=== PATIENT | female | born 1950 | race Caucasian/White ===

== ENCOUNTER → 2017-11-08 10:46 | Outpatient (CLI) | payer OTHER, SELFPAY ==
--- NOTE | 2017-11-08 10:48 | DI.MG.S_ITS ---
BILATERAL DIGITAL SCREENING MAMMOGRAM 3D/2D WITH CAD: 11/08/2017 CLINICAL: Routine screening. Comparison is made to exams dated: 08/04/2016 mammogram, 03/26/2015 mammogram, and 01/16/2012 mammogram - [facility]. The tissue of both breasts is predominantly fatty. Current study was also evaluated with a Computer Aided Detection (CAD) system. No significant masses, calcifications, or other findings are seen in either breast. There has been no significant interval change. IMPRESSION: NEGATIVE There is no mammographic evidence of malignancy. A 1 year screening mammogram is recommended. This exam was interpreted at Station ID: [id number]. NOTE: For mammograms, a report in lay terms will be sent to the patient. Approximately 15% of breast malignancies will not be visualized mammographically. In the management of a palpable breast mass, a negative mammogram must not discourage biopsy of a clinically suspicious lesion. Electronically Signed By: Lai whaley/marlee:11/09/2017 19:59:35 letter sent: Normal Exam ACR BI-RADS Category 1: Negative [id number]
== END ==
PROVIDERS: Family Provider Physician Assistant; PCP Physician Assistant; Visit Provider Physician Assistant
DX: Z12.31 Encounter for screening mammogram for malignant neoplasm of breast (principal)
CPT/HCPCS: 77063; 77067

== ENCOUNTER → 2019-04-15 11:35 | Outpatient (CLI) | payer OTHER, SELFPAY ==
--- NOTE | 2019-04-15 11:36 | DI.MG.S_ITS ---
BILATERAL DIGITAL SCREENING MAMMOGRAM 3D/2D WITH CAD: 04/15/2019 CLINICAL: Routine screening. Comparison is made to exams dated: 11/08/2017 mammogram, 08/04/2016 mammogram, 03/26/2015 mammogram, and 01/16/2012 mammogram - [facility]. There are scattered fibroglandular elements in both breasts. Current study was also evaluated with a Computer Aided Detection (CAD) system. There is a mole marker on both breasts. No significant masses, calcifications, or other findings are seen in either breast. There has been no significant interval change. IMPRESSION: NEGATIVE There is no mammographic evidence of malignancy. A 1 year screening mammogram is recommended. This exam was interpreted at Station ID: [id number]. NOTE: For mammograms, a report in lay terms will be sent to the patient. Approximately 15% of breast malignancies will not be visualized mammographically. In the management of a palpable breast mass, a negative mammogram must not discourage biopsy of a clinically suspicious lesion. Electronically Signed By: Negrito jacob/marlee:04/15/2019 17:52:12 letter sent: Normal Exam ACR BI-RADS Category 1: Negative [id number]
== END ==
PROVIDERS: PCP Physician Assistant; Visit Provider Physician Assistant
DX: Z12.31 Encounter for screening mammogram for malignant neoplasm of breast (principal)
CPT/HCPCS: 77063; 77067

== ENCOUNTER → 2019-09-22 09:51 | Outpatient (CLI) | payer OTHER, SELFPAY ==
--- NOTE | 2019-09-22 09:56 | DI.US.S_ITS ---
PROCEDURE: US SOFT TISSUE HEAD AND NECK INDICATIONS: LEFT SUBMANDIBULAR LUMP TECHNIQUE: Real-time scanning was performed of the neck region of interest, with image documentation. COMPARISON: None. FINDINGS: No mass or fluid collection seen within the soft tissues in the region of interest in the left submandibular region. There are several morphologically normal appearing in size lymph nodes present the largest measuring 6 mm IMPRESSION: No visible sonographic abnormality involving the soft tissues in the region of interest. Dictated by: Joby DELEON Interpreted: Juan Darling MD on 09/22/2019 at 11:06 Approved by: Juan Darling M.D. on 09/22/2019 at 11:11
== END ==
PROVIDERS: PCP Physician Assistant; Referring Provider Otolaryngology; Visit Provider Otolaryngology
DX: R22.1 Localized swelling, mass and lump, neck (principal)
CPT/HCPCS: 76536

== ENCOUNTER 2020-01-02 15:39 | Observation (INO) | payer OTHER, SELFPAY ==
[2020-01-02 15:42] VITALS: BP 174/78; PULSE 75; RESP 12; TEMP 36.2; O2SAT 95; BMI 39.4
--- NOTE | 2020-01-02 15:44 | DI.RAD.S_ITS ---
PROCEDURE: XR CHEST 1V INDICATIONS: chest pain TECHNIQUE: One view of the chest was acquired. COMPARISON: None. FINDINGS: Surgical changes and devices: None. Lungs and pleura: Lungs are clear. No pleural effusions or pneumothorax. Mediastinum: Mediastinal contours appear normal. Heart size is normal. Bones and chest wall: No suspicious bony lesions. Overlying soft tissues appear unremarkable. IMPRESSION: Normal for age, source of current chest pain symptoms is not seen. Dictated by: Juan Darling M.D. on 01/02/2020 at 16:56 Approved by: Juan Darling M.D. on 01/02/2020 at 16:56
[2020-01-02 16:08] LABS: Add Manual Diff / Slide Review NO; Basophils Absolute Auto 100 /uL (0-100); Basophils Percent Auto 1.4 % (0-2); Eosinophils Absolute Auto 200 /uL (0-450); Eosinophils Percent Auto 2.5 % (2-4); Hematocrit 41.8 % (36-46); Hemoglobin 13.9 g/dL (12.0-16.0); Lymphocytes Absolute Auto 1900 /uL (1100-4500); Mean Corpuscular HGB Conc 33.3 % (30-36); Mean Corpuscular Hemoglobin 29.9 PG (26-34); Mean Corpuscular Volume 90.1 fL (80-100); Monocytes Absolute Auto 500 /uL (0-900); Monocytes Percent Auto 6.8 % (3-14); Neutrophils Absolute Auto 4000 /uL (1500-7000); Neutrophils Percent Auto 60.3 % (50-75); Platelet Count 267 X10^3/uL (150-400); Red Blood Cell Count 4.64 X10^6/uL (4.0-5.2); Red Cell Distribution Width 14.6 % (11.6-14.8); White Blood Cell Count 6.7 X10^3/uL (4.5-11.0)
[2020-01-02 16:14] LABS: Prothrombin Time 11.6 SECONDS (10.1-12.7)
[2020-01-02 16:16] LABS: PTT Partial Thromboplastin Tim 35 SECONDS (26.4-36.2)
[2020-01-02 16:20] LABS: Alanine Aminotransferase 24 IU/L (<35); Albumin 4.3 g/dL (3.5-5.0); Albumin Globulin Ratio 1.2 (1.0-2.8); Alkaline Phosphatase 106 U/L (38-126); Aspartate Aminotransferase 25 IU/L (14-36); BUN Creatinine Ratio 13.2 (6-22); Bilirubin Total 0.5 mg/dL (0.2-1.3); Blood Urea Nitrogen 12 mg/dL (7-17); Calcium 9.5 mg/dL (8.4-10.2); Carbon Dioxide 30 mmol/L (22-32); Chloride 103 mmol/L (98-107); Creatine Kinase 61 U/L (30-135); Estimated Glomerular Filt Rate > 60.0 mL/min (>60); Globulin 3.5 g/dL (1.7-4.1); Glucose 95 mg/dL (80-110); HEMOLYSIS < 15 (0-50); Lipase 52 U/L (23-300); Potassium 3.9 mmol/L (3.4-5.1); Sodium 141 mmol/L (137-145); Total Protein 7.8 g/dL (6.3-8.2)
--- NOTE | 2020-01-02 16:20 | ED.CHESTPAIN ---
HPI - Chest Pain General Chief Complaint: Chest Pain Stated Complaint: BACK PAIN AND CHEST PAIN Time Seen by Provider: 01/02/20 16:04 Source: patient Mode of arrival: Ambulatory Limitations: no limitations History of Present Illness HPI narrative: Patient is a 69-year-old female who presents with chest pain and pain between her scapulas. She said while driving to work this morning she had some pain between her scapulas in her thoracic area a did sometimes hurt to move and to push down on the arm rest and stand up. However this afternoon she started noticing some chest discomfort which she describes as someone pushing on her chest and pressure like. It is nonradiating. She denies any provocation or palliation. she denies any shortness of breath no shortness of breath with exertion no diaphoresis nausea vomiting no productive cough or fever. She does have a family history mom of [place] in her 30s. MD complaint: chest pain Duration: constant Quality: heaviness Pain radiation: none Relieving factors: nothing Exacerbating factors: nothing Related Data Previous Rx's Medication Instructions Recorded pneumoc 13-cristóbal conj-dip cr(PF) 0.5 0.5 ml IM X1 #1 ea 02/04/19 mL IM syringe varicella-zoster [id number] (PF) 50 0.5 ml IM ONCE #1 each 02/04/19 mcg/0.5 mL IM susp, kit ropinirole 0.5 mg tablet 0.5 mg PO BEDTIME #90 tab 07/04/19 ropinirole 2 mg tablet 2 mg PO BEDTIME #90 tab 07/04/19 levothyroxine 125 mcg tablet 125 mcg PO DAILY #90 tab 10/22/19 Allergies Allergy/AdvReac Type Severity Reaction Status Date / Time metronidazole AdvReac Nausea, Verified 04/21/19 13:59 chills Review of Systems Review of Systems Narrative: GENERAL: Denies chills, fatigue, malaise, fever, sweats, travel HEENT: Denies sinus pain, ear pain, sore throat, difficulty swallowing, neck pain RESPIRATORY: Denies dyspnea, cough, wheezing, hemoptysis, sputum. CARDIOVASCULAR: See HPI GASTROINTESTINAL: Denies nausea, vomiting, abdominal pain, diarrhea, constipation, melena. : Denies dysuria, frequency, incontinence, hematuria, urinary retention, flank pain. MUSCULOSKELETAL: Denies weakness, joint pain, or bony pain SKIN: No rash, no erythema, no pruritus NEUROLOGIC: Denies weakness, dizziness, headache, numbness, change in speech, confusion PSYCHIATRIC: No concerning psychosocial issues. 12 point review of systems is negative except for those stated above and HPI Patient History Medical History Acquired hypothyroidism (Chronic) Chickenpox (Resolved Unknown) Dyslipidemia (Chronic ~2014) Exertional dyspnea (Chronic ~2014) History of petit-mal seizures (Resolved 1954) Hypothyroidism (Chronic 2006) Measles (Resolved Unknown) Mixed hyperlipidemia (Chronic 02/08/15) Tubular adenoma of colon (Resolved 07/12/16) Surgical History Status post delivery Status post delivery Status post delivery Family History Father Heart disease Smoker Alcoholism Mother Heart disease Smoker Grandfather No problems noted. Grandmother Stroke Grandfather No problems noted. Social History Smoking Status: Never smoker second hand exposure: No alcohol intake: current ([employer] once or twice a year.) substance use type: does not use Smoking Status: Never smoker Substance Use Type: does not use Exam Initial Vital Signs Initial Vital Signs: Vital Signs Temperature 97.2 F L 01/02/20 15:42 Pulse Rate 75 01/02/20 15:42 Respiratory Rate 12 01/02/20 15:42 Blood Pressure 174/78 H 01/02/20 15:42 Pulse Oximetry 95 01/02/20 15:42 GENERAL: Well-appearing, well-nourished and in no acute distress. HEENT: Head atraumatic,EOMI, pupils reactive, face symmetric, moist mucous membranes CARDIOVASCULAR: Regular rate and rhythm without murmurs, rubs or gallops. RESPIRATORY: Breath sounds equal bilaterally, no wheezes rales or rhonchi. ABDOMEN: Soft, nontender. Normoactive bowel sounds all 4 quadrants. No guarding or rebound. EXTREMITIES: Normal range of motion, no clubbing or edema. Neurovascularly intact NEUROLOGICAL: Alert and oriented x4.Normal gait and speech. SKIN: Warm, dry, no laceration, no petechiae, no rashes or lesions. Course Orders Ordered: ED Orders 01/02/20 15:44 XR chest 1V Stat 01/02/20 15:46 EKG-12 Lead Stat 01/02/20 16:00 Complete Blood Count AUTO DIFF Stat Comprehensive Metabolic Panel Stat Lipase Stat Partial Thromboplastin Time Stat Prothrombin Time INR Stat Troponin & CK Cardiac Panel Stat 01/02/20 16:27 CT angio chest abdomen pelvis Stat 01/02/20 16:48 EKG-12 Lead Routine 01/02/20 18:22 COVID19 -ED/INPAT/OR/L&D Stat 01/02/20 18:34 Thyroid Stimulating Hormone Stat Discontinued Medications Aspirin (Aspirin Chew) 324 mg PO NOW ONE Stop: 01/02/20 16:29 Last Admin: 01/02/20 16:33 Dose: 324 mg Documented by: VAN Nitroglycerin (Nitrostat) 0.4 mg SL [id number] PRN PRN Reason: Chest Pain Last Admin: 01/02/20 17:32 Dose: 0.4 mg Documented by: Admin: 01/02/20 16:57 Dose: 0.4 mg Documented by: Admin: 01/02/20 16:35 Dose: 0.4 mg Documented by: VAN Vital Signs Vital signs: Vital Signs - 8 hr 01/02/20 15:42 Temperature 97.2 F L Pulse Rate 75 Respiratory Rate 12 Blood Pressure 174/78 H Pulse Oximetry 95 MDM - Chest Pain Lab Data Attestation: I reviewed the patient's lab results. Result diagrams: 01/02/20 16:00 01/02/20 16:00 Labs: Lab Results 01/02/20 01/02/20 01/02/20 Range/Units 16:00 16:00 16:00 WBC 6.7 (4.5-11.0) X10^3/uL RBC 4.64 (4.0-5.2) X10^6/uL Hgb 13.9 (12.0-16.0) g/dL Hct 41.8 (36-46) % MCV 90.1 (80-100) fL MCH 29.9 (26-34) PG MCHC 33.3 (30-36) % RDW 14.6 (11.6-14.8) % Plt Count 267 (150-400) X10^3/uL Neut % (Auto) 60.3 (50-75) % Lymph % (Auto) 29.0 (25-40) % [place] % (Auto) 6.8 (3-14) % Eos % (Auto) 2.5 (2-4) % Baso % (Auto) 1.4 (0-2) % Neut # (Auto) 4000 (2985-6769) /uL Lymph # (Auto) 1900 (7675-3417) /uL [place] # (Auto) 500 (0-900) /uL Eos # (Auto) 200 (0-450) /uL Baso # (Auto) 100 (0-100) /uL PT 11.6 (10.1-12.7) SECONDS INR 1.0 (0.9-1.3) APTT 35 (26.4-36.2) SECONDS Sodium 141 (137-145) mmol/L Potassium 3.9 (3.4-5.1) mmol/L Chloride 103 (98-107) mmol/L Carbon Dioxide 30 (22-32) mmol/L BUN 12 (7-17) mg/dL Creatinine 0.91 (0.52-1.04) mg/dL Estimated GFR > 60.0 (>60) mL/min BUN/Creatinine Ratio 13.2 (6-22) Glucose 95 (80-110) mg/dL Calcium 9.5 (8.4-10.2) mg/dL Total Bilirubin 0.5 (0.2-1.3) mg/dL AST 25 (14-36) IU/L ALT 24 (<35) IU/L Alkaline Phosphatase 106 (38-126) U/L Total Creatine Kinase 61 (30-135) U/L CK-MB (CK-2) TNP CK-MB (CK-2) Rel Index TNP Troponin I < 0.012 (0.01-0.034) ng/mL Total Protein 7.8 (6.3-8.2) g/dL Albumin 4.3 (3.5-5.0) g/dL Globulin 3.5 (1.7-4.1) g/dL Albumin/Globulin Ratio 1.2 (1.0-2.8) Lipase 52 (23-300) U/L COVID-19 PCR (Negative) 01/02/20 Range/Units 18:22 WBC (4.5-11.0) X10^3/uL RBC (4.0-5.2) X10^6/uL Hgb (12.0-16.0) g/dL Hct (36-46) % MCV (80-100) fL MCH (26-34) PG MCHC (30-36) % RDW (11.6-14.8) % Plt Count (150-400) X10^3/uL Neut % (Auto) (50-75) % Lymph % (Auto) (25-40) % [place] % (Auto) (3-14) % Eos % (Auto) (2-4) % Baso % (Auto) (0-2) % Neut # (Auto) (3470-8286) /uL Lymph # (Auto) (5024-3908) /uL [place] # (Auto) (0-900) /uL Eos # (Auto) (0-450) /uL Baso # (Auto) (0-100) /uL PT (10.1-12.7) SECONDS INR (0.9-1.3) APTT (26.4-36.2) SECONDS Sodium (137-145) mmol/L Potassium (3.4-5.1) mmol/L Chloride (98-107) mmol/L Carbon Dioxide (22-32) mmol/L BUN (7-17) mg/dL Creatinine (0.52-1.04) mg/dL Estimated GFR (>60) mL/min BUN/Creatinine Ratio (6-22) Glucose (80-110) mg/dL Calcium (8.4-10.2) mg/dL Total Bilirubin (0.2-1.3) mg/dL AST (14-36) IU/L ALT (<35) IU/L Alkaline Phosphatase (38-126) U/L Total Creatine Kinase (30-135) U/L CK-MB (CK-2) CK-MB (CK-2) Rel Index Troponin I (0.01-0.034) ng/mL Total Protein (6.3-8.2) g/dL Albumin (3.5-5.0) g/dL Globulin (1.7-4.1) g/dL Albumin/Globulin Ratio (1.0-2.8) Lipase (23-300) U/L COVID-19 PCR Negative (Negative) Imaging Data Chest x-ray: Radiologist's Impression: PROCEDURE: XR CHEST 1V INDICATIONS: chest pain TECHNIQUE: One view of the chest was acquired. COMPARISON: None. FINDINGS: Surgical changes and devices: None. Lungs and pleura: Lungs are clear. No pleural effusions or pneumothorax. Mediastinum: Mediastinal contours appear normal. Heart size is normal. Bones and chest wall: No suspicious bony lesions. Overlying soft tissues appear unremarkable. IMPRESSION: Normal for age, source of current chest pain symptoms is not seen. Dictated by: Juan Darling M.D. on 01/02/2020 at 16:56 Approved by: Juan Darling M.D. on 01/02/2020 at 16:56 CTA chest: Radiologist's Impression: PROCEDURE: CT ANGIO CHEST ABDOMEN PELVIS INDICATIONS: chest pain scapula pain TECHNIQUE: Precontrast 5 mm thick sections acquired from the lung apices to the iliac crests. After the administration of intravenous contrast, 2.5 mm thick sections again acquired from the lung apices to the iliac crests. Maximum intensity projection (MIP) oblique sagittal and coronal reformats were then acquired. For radiation dose reduction, the following was used: automated exposure control. COMPARISON: None. FINDINGS: Image quality: Excellent. VASCULAR FINDINGS: Mild coronary artery atherosclerotic calcifications are present. No acute aortic dissection, ulceration, or intramural hematoma. The origins of the major head and neck vessels are patent. Minimal atherosclerotic calcifications are seen in the thoracic and abdominal aorta. The aorta is normal in caliber throughout. The origins of the celiac trunk, SMA, renal arteries, and ANMOL are patent. The common iliac arteries are normal in size. The right and left internal and external iliac arteries are normal in size. The included portions of the common, superficial, and deep femoral arteries are patent. CHEST: Lungs and pleura: No acute airspace opacities. No pleural effusions or pneumothorax. Central and peripheral airways are patent and normal in caliber. Mediastinum: Heart size is normal. No pericardial effusion. No mediastinal or hilar adenopathy by size criteria. Central pulmonary arteries are normal in size. Esophagus is normal in caliber. No hiatal hernias. Bones and chest wall: No axillary adenopathy by size criteria. A peripherally calcified nodule is seen in the right thyroid. Additional partially calcified nodule seen in the left thyroid. Thyroid ultrasound may be obtained on a nonemergent basis for further evaluation. No suspicious bony lesions. No vertebral body compression fractures. ABDOMEN: Vasculature: Celiac trunk and mesenteric arteries are patent. Renal arteries are also patent. Solid organs: Liver is normal in size and enhancement. Gallbladder appears normal.. Biliary system is non dilated. Pancreas enhances normally. Spleen is normal in size and enhancement. No adrenal nodules. Both kidneys are normal in size and enhancement, without hydronephrosis. Peritoneum and bowel: No free fluid or air. Numerous diverticula are seen in the colon without signs of acute diverticulitis. Normal appendix. Nodes and vessels: No retroperitoneal or mesenteric adenopathy by size criteria. Inferior vena cava is normal in morphology. Miscellaneous: No ventral hernias. PELVIS: Genitourinary: Bladder wall thickness is normal. The uterus appears normal. No abnormal adnexal mass is seen. Miscellaneous: No inguinal hernias or adenopathy. No ventral hernias. Bones: No suspicious bony lesions. No vertebral body compression fractures. Mild degenerative changes are seen in the spine. No acute scapular fracture is seen. IMPRESSION: 1. No acute aortic dissection. Minimal atherosclerotic calcifications are seen in the included vasculature without hemodynamically significant stenosis. 2. Colonic diverticulosis without signs of acute diverticulitis. 3. Multiple partially calcified thyroid nodules are present. Thyroid ultrasound may be obtained on an outpatient basis for further evaluation. Dictated by: Nathen Carmichael M.D. on 01/02/2020 at 17:30 ECG Data Attestation: I personally reviewed and interpreted this ECG as follows: Prior ECG tracings: not available for review Interpretation: Normal sinus rhythm rate 60-158 QRS [address] changes EKG 2. Sinus rhythm rate 60 p.r. interval [address] changes similar to previous EKG MDM Narrative Medical decision making narrative: Patient received 3 nitroglycerines which finally resolved her chest pain. CT scan is negative for dissection. She does have risk factor of family history. Back pain does sound slightly musculoskeletal, however she is having radiation to chest. [address] Acosta, at this time recommend patient stay [facility] and have rule out with outpatient stress test early next. 1836-Dr. gross accepts patient for chest pain Discharge Plan Departure Patient Disposition: Admitted as Observation Clinical Impression: Chest pain Qualifiers: Chest pain type: unspecified Qualified Code(s): R07.9 - Chest pain, unspecified Admit Date/Time: 01/02/20 18:37 Admit Provider: Veronica Galarza
--- NOTE | 2020-01-02 16:27 | DI.CT.S_ITS ---
PROCEDURE: CT ANGIO CHEST ABDOMEN PELVIS INDICATIONS: chest pain scapula pain TECHNIQUE: Precontrast 5 mm thick sections acquired from the lung apices to the iliac crests. After the administration of intravenous contrast, 2.5 mm thick sections again acquired from the lung apices to the iliac crests. Maximum intensity projection (MIP) oblique sagittal and coronal reformats were then acquired. For radiation dose reduction, the following was used: automated exposure control. COMPARISON: None. FINDINGS: Image quality: Excellent. VASCULAR FINDINGS: Mild coronary artery atherosclerotic calcifications are present. No acute aortic dissection, ulceration, or intramural hematoma. The origins of the major head and neck vessels are patent. Minimal atherosclerotic calcifications are seen in the thoracic and abdominal aorta. The aorta is normal in caliber throughout. The origins of the celiac trunk, SMA, renal arteries, and ANMOL are patent. The common iliac arteries are normal in size. The right and left internal and external iliac arteries are normal in size. The included portions of the common, superficial, and deep femoral arteries are patent. CHEST: Lungs and pleura: No acute airspace opacities. No pleural effusions or pneumothorax. Central and peripheral airways are patent and normal in caliber. Mediastinum: Heart size is normal. No pericardial effusion. No mediastinal or hilar adenopathy by size criteria. Central pulmonary arteries are normal in size. Esophagus is normal in caliber. No hiatal hernias. Bones and chest wall: No axillary adenopathy by size criteria. A peripherally calcified nodule is seen in the right thyroid. Additional partially calcified nodule seen in the left thyroid. Thyroid ultrasound may be obtained on a nonemergent basis for further evaluation. No suspicious bony lesions. No vertebral body compression fractures. ABDOMEN: Vasculature: Celiac trunk and mesenteric arteries are patent. Renal arteries are also patent. Solid organs: Liver is normal in size and enhancement. Gallbladder appears normal.. Biliary system is non dilated. Pancreas enhances normally. Spleen is normal in size and enhancement. No adrenal nodules. Both kidneys are normal in size and enhancement, without hydronephrosis. Peritoneum and bowel: No free fluid or air. Numerous diverticula are seen in the colon without signs of acute diverticulitis. Normal appendix. Nodes and vessels: No retroperitoneal or mesenteric adenopathy by size criteria. Inferior vena cava is normal in morphology. Miscellaneous: No ventral hernias. PELVIS: Genitourinary: Bladder wall thickness is normal. The uterus appears normal. No abnormal adnexal mass is seen. Miscellaneous: No inguinal hernias or adenopathy. No ventral hernias. Bones: No suspicious bony lesions. No vertebral body compression fractures. Mild degenerative changes are seen in the spine. No acute scapular fracture is seen. IMPRESSION: 1. No acute aortic dissection. Minimal atherosclerotic calcifications are seen in the included vasculature without hemodynamically significant stenosis. 2. Colonic diverticulosis without signs of acute diverticulitis. 3. Multiple partially calcified thyroid nodules are present. Thyroid ultrasound may be obtained on an outpatient basis for further evaluation. Dictated by: Nathen Carmichael M.D. on 01/02/2020 at 17:30 Approved by: Nathen Carmichael M.D. on 01/02/2020 at 17:40
[2020-01-02 16:32] LABS: Troponin I < 0.012 ng/mL (0.01-0.034)
[2020-01-02] MEDS: ASPIRIN 81 MG CHEW TAB 324 MG PO (16:33)
[2020-01-02] MEDS: NITROGLYCERIN 0.4 MG SL TAB SL ×3 (16:35→17:32)
--- NOTE | 2020-01-02 16:50 | PC.NURSE ---
rpt ekg performed
[2020-01-02 17:30] VITALS: BP 145/62; PULSE 61; RESP 18; O2SAT 99
[2020-01-02 18:42] LABS: COVID19 -Nasal RAPID Negative (Negative)
[2020-01-02 19:15] VITALS: BP 166/44; PULSE 61; RESP 18; O2SAT 99
[2020-01-02 19:20] VITALS: BP 140/73; PULSE 62; RESP 18; TEMP 36.1; O2SAT 99
--- NOTE | 2020-01-02 19:36 | PC.ADMIT ---
[address] [facility] Admission Note: The patient,Demetria Ding,69 y/o, was given written information regarding hospital policies, unit procedures and contact persons. Patient's smoking status: Never smoker. Vital Signs - 8 hr 01/02/20 15:42 01/02/20 19:15 Temperature 97.2 F L Pulse Rate 75 61 Respiratory Rate 12 18 Blood Pressure 174/78 H 166/44 H Pulse Oximetry 95 99 Patient up from ED via stretcher. Patient was able to ambulate to AC bed on own and gait steady. Patient denies SOB or chest pain at this time. Tele placed shortly after arrival. Patient A&O, calm and cooperative.
[2020-01-02 19:42] LABS: Thyroid Stimulating Hormone 2.87 uIU/mL (0.47-4.68)
[2020-01-02 20:08] VITALS: BMI 39.4
[2020-01-02 21:14] VITALS: BP 140/73; PULSE 62; RESP 18; TEMP 36.1; O2SAT 99
[2020-01-02 21:27] LABS: Hemoglobin A1C% w Est Avg Glu 6.2 % (4.0-6.0)
[2020-01-02] MEDS: SODIUM CHLORIDE 0.9% FLUSH 10 ML IV (21:29)
[2020-01-02] MEDS: ACETAMINOPHEN 325 MG TABLET 650 MG PO (21:29)
[2020-01-03] VITALS (8 sets, daily range): BP systolic 116–144; BP diastolic 48–92; PULSE 69–70; RESP 12–18; TEMP 36.2–36.6; O2SAT 95–99
--- NOTE | 2020-01-03 | DI.ECHO.S_ITS ---
[facility] +---------+ : : [address] : : : : [id number] : : : : Phone: [phone]+ Echocardiogram Report + + :Name: JENAE KABA Study Date: 01/03/2020 Height: 64 in : :[facility] Weight: 225 lb : : Gender: Female BSA: 2.1 m2 : :: 1950 Age: 69 yrs BP: 144/74 mmHg: :Reason For Study: CHEST PAIN : :Ordering Physician: : :HOSPITALISTYOVANI Performed By: Eri Cooper : :Referring: MALICK PAK : + + Interpretation Summary This is a technically difficult study enhanced with Definity echocontrast. Normal sinus rhythm. Normal LV size; mild concentric LVH; normal wall motion and LV systolic function. EF is 60-65%. Aortic valve leaflets are moderately thickened and calcified with mild associated aortic stenosis. No prior study available for comparison. Procedure: A two-dimensional transthoracic echocardiogram with color flow and Doppler was performed. The study quality was technically difficult. A contrast injection of Definity was performed to improve assessment of LV function. There is no prior echocardiogram noted for this patient. The patient was in sinus rhythm with heart rates between 66-71 bpm during the exam. Left Ventricle: The left ventricle is normal in size. There is mild concentric left ventricular hypertrophy. The ejection fraction is estimated to be 60-65%. Diastolic parameters suggest probable normal left ventricular diastolic function and normal filling pressures. Right Ventricle: The right ventricle is normal in size and function. Atria: Both atria are normal in size. There is no Doppler evidence for an interatrial shunt. Mitral Valve: The mitral valve is normal in structure and function. Aortic Valve: The aortic valve is not well visualized. There is mild aortic valve sclerosis. There is mild aortic stenosis. No aortic regurgitation is present. Tricuspid Valve: The tricuspid valve is normal. Pulmonary artery pressures cannot be estimated because of the lack of a measurable TR jet velocity but the IVC suggests a CVP of around 3 mmHg. There is trace tricuspid regurgitation. Pulmonic Valve: The pulmonic valve is not well seen, but is grossly normal. There is trace pulmonic regurgitation. Great Vessels: The aortic root is normal size. The dimensions of the ascending aorta are normal. The IVC is of normal diameter and collapses greater than 50% with a sniff. This suggests a low right atrial pressure of 3 mm Hg. Pericardium/ Pleura There is no pericardial effusion. There is no pleural effusion. MMode/2D Measurements & Calculations LVIDd: 4.5 cm LVOT diam: 2.1 cm LVIDs: 3.1 cm Ao root diam: 3.1 cm FS: 32.1 % asc Aorta Diam: 3.1 cm EPSS: 0.74 cm Ao Arch Diam (Prox Trans): 3.2 cm IVSd: 1.2 cm LVPWd: 1.1 cm LV villalobos. diameter/BSA (cm/m^2): 2.2 LV sys. diameter/BSA (cm/m^2): 1.5 LA A2 area: 20.5 cm2 RA long axis: 4.2 cm LA A4 area: 14.4 cm2 RA area: 10.9 cm2 LA length (vol): 4.7 cm RA vol: 24.1 ml LA vol: 53.3 ml RA : 11.7 ml/m2 LA vol index: 25.9 ml/m2 IVC diam: 1.3 cm RVD1 (basal): 3.4 cm TAPSE: 1.8 cm Doppler Measurements & Calculations Ao V2 max: 209.2 cm/sec LVOT Max Ricky: 128.4 cm/sec Ao V2 mean: 138.3 cm/sec LV V1 max P.6 mmHg Ao max P.5 mmHg LV V1 VTI: 26.4 cm Ao mean P.0 mmHg SHAILA(I,D): 2.3 cm2 Ao V2 VTI: 40.8 cm SHAILA(V,D): 2.2 cm2 sev ratio: 0.65 SHAILA indexed to BSA (cm^2/m^2): 1.1 MV E max ricky: 75.0 cm/sec PA V2 max: 83.4 cm/sec MV A max ricky: 88.6 cm/sec PA V2 mean: 54.1 cm/sec MV E/A: 0.85 PA mean P.3 mmHg Med Peak E' Ricky: 6.6 cm/sec PA pr(Accel): 22.5 mmHg E/E' med: 11.3 Lat Peak E' Ricky: 9.3 cm/sec E/E' lat: 8.0 E/e' average: 9.7 MV dec time: 0.22 sec SV(LVOT): 94.8 ml Electronically signed by: Jazmin Farias M.D. on Reading Physician:01/03/2020 04:55 PM
[2020-01-03 00:02] LABS: Troponin I < 0.012 ng/mL (0.01-0.034)
--- NOTE | 2020-01-03 02:41 | P.HP_ITS ---
History of Present Illness History of Present Illness Date Patient Seen: 01/02/20 Time Patient Seen: 21:00 Chief complaint: BACK PAIN AND CHEST PAIN Narrative: Demetria Ding is a 69-year-old female with hypothyroidism and who was on her way to work and noticed that she developed pain in her upper back. It was achy sort of a feeling, she states that was like staying in bed too long. Later in the day she developed chest pain which felt more like an on going pressure. It did not seem to be related to the pain in her upper back. She denies any fevers sweats or chills or diaphoresis, shortness of breath, nausea or vomiting, dysuria, abdominal pain, diarrhea or constipation. She is independent in is able to ambulate without any issues. She was concerned because she has family history of her biological mother whose children she met told her that their m other at the age of 33 suddenly and the patient believed she of a sudden cardiac . Her biological father who she did now in his 60s and was a heavy smoker and coffee drinker. In the ED the head CT as well as a CT angio of the chest were both negative. Patient's temperature is 97.9?, blood pressure 116/48, heart rate of 69, respiratory rate of 12, oxygen saturation 99% on room air she weighs 102.5 kg with a BMI of 39.4. CBC, BMP and liver enzymes all were within normal limits, she does have a hemoglobin A1c of 6.2, TSH was normal, COVID-19 was negative. Patient History Medical History Acquired hypothyroidism (Chronic) Chickenpox (Resolved Unknown) Dyslipidemia (Chronic ~2014) Exertional dyspnea (Chronic ~2014) History of petit-mal seizures (Resolved 1954) Hypothyroidism (Chronic 2006) Measles (Resolved Unknown) Mixed hyperlipidemia (Chronic 02/08/15) Tubular adenoma of colon (Resolved 07/12/16) Surgical History Status post delivery Status post delivery Status post delivery Family & Social History Family History Father Heart disease Smoker Alcoholism Mother Heart disease Smoker Grandfather No problems noted. Grandmother Stroke Grandfather No problems noted. Social History: household members family Prior Living Arrangements House Safety & Behavioral: Feels Safe in Current Yes Environment Been Physically Hurt or No Threatened By a Person Suicidal Ideation Description None Suicide Plan Description No Plan Tobacco & Substance use: Smoking Status Never smoker alcohol intake current alcohol intake frequency holiday/special occasion Substance Use Type does not use Meds Home Medications and Allergies Home Medications Medication Instructions Recorded Confirmed Type levothyroxine 125 mcg tablet 125 mcg PO DAILY #90 tab 10/22/19 01/02/20 Rx Allergies Allergy/AdvReac Type Severity Reaction Status Date / Time metronidazole AdvReac Nausea, Verified 04/21/19 13:59 chills Review of Systems Review of Systems ROS: Yes All systems reviewed with the patient and are negative except as otherwise documented Exam Vital Signs (past 8 hours): - 01/02/20 19:15 01/02/20 19:20 01/02/20 21:14 Temperature 97 F L 97.0 F L Pulse Rate 61 62 62 Respiratory Rate 18 18 18 Blood Pressure 166/44 H 140/73 140/73 Pulse Oximetry 99 99 99 01/03/20 00:14 01/03/20 01:15 Temperature 97.9 F Pulse Rate 69 Respiratory Rate 12 Blood Pressure 116/48 L Pulse Oximetry 96 99 Oxygen Delivery Method Room Air Narrative Exam Narrative: Gen: Alert, oriented, obese 69 y.o. female, slightly anxious HEENT: normocephalic, atraumatic, conjunctiva clear, sclera non-icteric, oral mucosa pink and moist Neck: supple, full ROM, no JVD, trachea is midline Resp: Lungs CTA, non-labored breathing CV: RRR, no murmur or rubs Abd: soft, non-tender, normoactive BTs Skin: no lesions or rashes, dry and intact Neuro: Alert and oriented X 4 w/no focal deficits. Speech clear and coherent. Extremities: moves all 4 extremities, is ambulatory, negative Flex?s sign Psyche: normal mood and affect. Objective Labs Result Diagrams: 01/02/20 16:00 01/02/20 16:00 Labs: Laboratory Results - last 24 hr 01/02/20 01/02/20 01/02/20 16:00 16:00 16:00 WBC 6.7 RBC 4.64 Hgb 13.9 Hct 41.8 MCV 90.1 MCH 29.9 MCHC 33.3 RDW 14.6 Plt Count 267 Neut % (Auto) 60.3 Lymph % (Auto) 29.0 [place] % (Auto) 6.8 Eos % (Auto) 2.5 Baso % (Auto) 1.4 Neut # (Auto) 4000 Lymph # (Auto) 1900 [place] # (Auto) 500 Eos # (Auto) 200 Baso # (Auto) 100 PT 11.6 INR 1.0 APTT 35 Sodium 141 Potassium 3.9 Chloride 103 Carbon Dioxide 30 BUN 12 Creatinine 0.91 Estimated GFR > 60.0 BUN/Creatinine Ratio 13.2 Glucose 95 Hemoglobin A1c Calcium 9.5 Total Bilirubin 0.5 AST 25 ALT 24 Alkaline Phosphatase 106 Total Creatine Kinase 61 CK-MB (CK-2) TNP CK-MB (CK-2) Rel Index TNP Troponin I < 0.012 Total Protein 7.8 Albumin 4.3 Globulin 3.5 Albumin/Globulin Ratio 1.2 Lipase 52 TSH COVID-19 PCR 01/02/20 01/02/20 01/02/20 16:00 16:00 18:22 WBC RBC Hgb Hct MCV MCH MCHC RDW Plt Count Neut % (Auto) Lymph % (Auto) [place] % (Auto) Eos % (Auto) Baso % (Auto) Neut # (Auto) Lymph # (Auto) [place] # (Auto) Eos # (Auto) Baso # (Auto) PT INR APTT Sodium Potassium Chloride Carbon Dioxide BUN Creatinine Estimated GFR BUN/Creatinine Ratio Glucose Hemoglobin A1c 6.2 H Calcium Total Bilirubin AST ALT Alkaline Phosphatase Total Creatine Kinase CK-MB (CK-2) CK-MB (CK-2) Rel Index Troponin I Total Protein Albumin Globulin Albumin/Globulin Ratio Lipase TSH 2.87 COVID-19 PCR Negative 01/02/20 23:30 WBC RBC Hgb Hct MCV MCH MCHC RDW Plt Count Neut % (Auto) Lymph % (Auto) [place] % (Auto) Eos % (Auto) Baso % (Auto) Neut # (Auto) Lymph # (Auto) [place] # (Auto) Eos # (Auto) Baso # (Auto) PT INR APTT Sodium Potassium Chloride Carbon Dioxide BUN Creatinine Estimated GFR BUN/Creatinine Ratio Glucose Hemoglobin A1c Calcium Total Bilirubin AST ALT Alkaline Phosphatase Total Creatine Kinase CK-MB (CK-2) CK-MB (CK-2) Rel Index Troponin I < 0.012 Total Protein Albumin Globulin Albumin/Globulin Ratio Lipase TSH COVID-19 PCR Assessment & Plan Assessment & Plan narrative: Demetria Ding is placed into observation for further evaluation of her chest pain. She is also now newly diagnosed with diabetes type 2. Chest pain, acute, present on admission -troponin is negative x2 1 more is pending. -she is initiated on aspirin 81 mg once daily -she is initiated on lisinopril 10 mg p.o. daily -complete echo in the morning -she will need a follow-up referral for outpatient cardiac stress testing Diabetes type 2, new, present on admission with a hemoglobin A1c of 6.2 -she will be put on a low-dose insulin correctional scale -she should be discharged with diabetic Education and probable metformin low- dose with follow-up in 3 months Risk stratification -she will be started on atorvastatin 40 mg p.o. at bedtime -lipid panel is pending Hypothyroidism, chronic Continue home dose of levothyroxine 125 mcg p.o. daily VTE prophylaxis: Wells risk score: 0 Enoxaparin 40 mg subQ daily Consults: none Patient is observation status as her stay is not likely to exceed 2 midnights. FEN: NS at 100 ml/hour, carb control diet, BMP and magnesium in the am. Dispo: Probable discharge to home Code Status: full code as discussed with patient Scores Wells' Criteria for PE Clinical signs and symptoms of DVT: No PE is #1 Dx or equally likely: No Heart rate > 100: No Immobilization at least 3 days or surg in previous 4 weeks: No History of PE or DVT: No Hemoptysis: No Malignancy w/Treatment within 6 months or palliative: No Wells' PE Score total: 0 Quality VTE Deep Vein Thrombosis/Pulmonary Embolism Present on Admission: No
[2020-01-03] MEDS: ACETAMINOPHEN 325 MG TABLET 650 MG PO (04:04)
[2020-01-03 05:42] LABS: Add Manual Diff / Slide Review NO; Basophils Absolute Auto 100 /uL (0-100); Basophils Percent Auto 1.4 % (0-2); Eosinophils Absolute Auto 200 /uL (0-450); Eosinophils Percent Auto 3.2 % (2-4); Hematocrit 37.2 % (36-46); Hemoglobin 12.4 g/dL (12.0-16.0); Lymphocytes Absolute Auto 1700 /uL (1100-4500); Lymphocytes Percent Auto 27.5 % (25-40); Mean Corpuscular HGB Conc 33.2 % (30-36); Mean Corpuscular Hemoglobin 29.6 PG (26-34); Mean Corpuscular Volume 89.3 fL (80-100); Monocytes Absolute Auto 600 /uL (0-900); Monocytes Percent Auto 9.8 % (3-14); Neutrophils Absolute Auto 3500 /uL (1500-7000); Neutrophils Percent Auto 58.1 % (50-75); Platelet Count 232 X10^3/uL (150-400); Red Blood Cell Count 4.17 X10^6/uL (4.0-5.2); Red Cell Distribution Width 14.8 % (11.6-14.8); White Blood Cell Count 6.1 X10^3/uL (4.5-11.0)
[2020-01-03 05:56] LABS: BUN Creatinine Ratio 15.8 (6-22); Blood Urea Nitrogen 15 mg/dL (7-17); Calcium 8.9 mg/dL (8.4-10.2); Carbon Dioxide 27 mmol/L (22-32); Chloride 106 mmol/L (98-107); Cholesterol 207 mg/dL (140-199); Estimated Glomerular Filt Rate 58.5 mL/min (>60); Glucose 103 mg/dL (80-110); HDL Cholesterol 46 mg/dL (40-60); HEMOLYSIS < 15 (0-50); LDL Cholesterol Calculated 134 mg/dL (<100); Sodium 138 mmol/L (137-145); Triglycerides 133 mg/dL (35-150)
[2020-01-03] MEDS: lisinopriL 10 MG TABLET PO ×2 (08:05→12:26)
[2020-01-03] MEDS: ASPIRIN EC 81 MG TABLET PO (08:05)
[2020-01-03] MEDS: SODIUM CHLORIDE 0.9% FLUSH 10 ML IV (08:05)
[2020-01-03] MEDS: LEVOTHYROXINE 125 MCG TABLET PO (08:26)
[2020-01-03 08:33] LABS: Creatine Kinase 44 U/L (30-135)
[2020-01-03 08:46] LABS: Troponin I < 0.012 ng/mL (0.01-0.034)
[2020-01-03] MEDS: KETOROLAC 30 MG/ML VIAL IV (11:00)
--- NOTE | 2020-01-03 12:19 | CM.DANOTE ---
Discharge Planning/Care Management DCP: assessment: case received, EMRf reviewed and met briefly with pt during Team Bedside Rounds. Introduced self and role. Pt is a 69 year old female who admitted to care of hospitalist team. PCP: Pt confirms: Sarah Saldivar/[facility]. Payer: [employer] ER physician did confer with cardiology: recommendation for pt to admit to hospital and workup including ECHO an stress test. Pt reported in Rounds that she still was having some chest pain but to a lesser degree. Dr. Galarza has placed a d/c order for home which she plans to finalize if test results are as she anticipates. Pt reports she did drive herself here from her home in [place]. If she is not ok'd to drive herself home she says she will reach out to her Emergency contact/friend: Sonja Webster (her contact info is on pt's face sheet.) P: at this point: home when stable for same.j Dr. Galarza told pt she would be back later to see her once test results are in place. CM Discharge Assessment Start: 01/03/20 12:17 Freq: Status: Active Protocol: Document 01/03/20 12:17 ITV (Rec: 01/03/20 12:19 ITV [id number]) Discharge Planning Assessment Advance Directives? Yes History Provided By Patient,Medical Record Prior Living Arrangements House Type of transporation used prior to Drives own vehicle admit Independent with ADL's Yes Is patient alert and oriented? Yes Review Status In Process
--- NOTE | 2020-01-03 16:46 | P.DS_ITS ---
History of Present Illness History of Present Illness Date Patient Seen: 01/02/20 Chief complaint: BACK PAIN AND CHEST PAIN Narrative: Written by Lia PANTOJA: Demetria Ding is a 69-year-old female with hypothyroidism and who was on her way to work and noticed that she developed pain in her upper back. It was achy sort of a feeling, she states that was like staying in bed too long. Later in the day she developed chest pain which felt more like an on going pressure. It did not seem to be related to the pain in her upper back. She denies any fevers sweats or chills or diaphoresis, shortness of breath, nausea or vomiting, dysuria, abdominal pain, diarrhea or constipation. She is independent in is able to ambulate without any issues. She was concerned because she has family history of her biological mother whose children she met told her that their mother at the age of 33 suddenly and the patient believed she of a sudden cardiac . Her biological father who she did now in his 60s and was a heavy smoker and coffee drinker. In the ED the head CT as well as a CT angio of the chest were both negative. Patient's temperature is 97.9?, blood pressure 116/48, heart rate of 69, respiratory rate of 12, oxygen saturation 99% on room air she weighs 102.5 kg with a BMI of 39.4. CBC, BMP and liver enzymes all were within normal limits, she does have a hemoglobin A1c of 6.2, TSH was normal, COVID-19 was negative. Discharge Providers Provider Date of admission: 01/02/20 18:37 Discharge Date: 01/03/20 Primary care physician: Sarah Saldivar PA-C Consults: 01/03/20 02:52 Consult to Dietitian, Adult Urgent Comment: Reason For Exam: diabetic teaching Discharge provider: Veronica Galarza DO Summary Hospital Course Discharge Diagnosis: 1. Acute chest pain, present on admission. Resolved. 2. Newly diagnosed hypertension, chronic, present on admission. Stable. 3. Newly diagnosed hyperlipidemia, chronic, present on admission. Stable. 4. Newly diagnosed prediabetes, chronic, present on admission. Stable. 5. Hypothyroidism, chronic, present on admission. Stable. Hospital Course: Demetria Ding is a 69-year-old female with a past medical history significant for hypothyroidism and who presented to the ED with upper back pain that slowly progressed to chest pressure. 1. Acute chest pain, present on admission. Resolved. -Patient presented with upper back pain that slowly progressed to chest pressure. Patient received 2 doses SL nitroglycerin without change then resolved with 3rd dose. Patient has had intermittent and ongoing mild chest pressure. -Cardiac risk factors include: Hypertension, hyperlipidemia, prediabetes, and family history (mother in 30's of sudden presumed cardiac ). -EKG demonstrated sinus rhythm with LVH and without acute ischemic changes such as ST elevation or depression. Continued to monitor closely on telemetry. Patient remained in sinus rhythm throughout hospitalization without significant ectopy. -CTA chest, abdomnen and pelvis did not demonstrate acute aortic dissection with minimal atherosclerotic calcifications are seen in the included vasculature without hemodynamically significant stenosis. -Trended serial troponins x3 which were < 0.012. -Risk stratified with hemoglobin A1c which was slightly elevated at 6.2% indicative of prediabetes and and fasting lipid panel which demonstrated poor lipid control with: Total cholesterol 207, triglyceride 133, LDL 134 (goal <100) and HDL 46. -Echocardiogram demonstrated normal LV size; mild concentric LVH; normal wall motion and LV systolic function with EF is 60-65%, Aortic valve leaflets are moderately thickened and calcified with mild associated aortic stenosis. -Ordered nitroglycerin 0.4 mg sublingual every 5 minutes as needed for chest pain and morphine 2 mg every 5 minutes as needed for chest pain not relieved with nitroglycerin. Discharged home with prescription of nitroglycerin. -Started and continued aspirin 81 mg weekly and atorvastatin 40 mg daily at bedtime. -Recommended outpatient cardiac stress test in the next 1-2 weeks per PCP. 2. Newly diagnosed hypertension, chronic, present on admission. Stable. -Patient's blood pressure was persistently elevated with SBP 140-160s with evidence of LVH on EKG and echocardiogram. -Started and continued home lisinopril 20 mg daily. 3. Newly diagnosed hyperlipidemia, chronic, present on admission. Stable. -Fasting lipid panel demonstrated poor lipid control as above. -Started and continued atorvastatin 40 mg at bedtime. 4. Newly diagnosed prediabetes, chronic, present on admission. Stable. -Hemoglobin A1c 6.2%. -Continued [facility] blood glucose checks and low-dose insulin correctional scale. -Community Administrator consult not obtained due to scheduling. -Recommended lifestyle modification including diet and exercise. 5. Hypothyroidism, chronic, present on admission. Stable. -TSH normal at 2.87. -Continued home levothyroxine 125 mcg daily. Exam Vital Signs (past 8 hours): - 01/03/20 12:00 01/03/20 12:26 01/03/20 16:08 Temperature 97.1 F L 97.1 F L Pulse Rate 69 70 Respiratory Rate 15 18 Blood Pressure 144/87 H 144/87 H 129/72 Pulse Oximetry 96 96 Oxygen Delivery Method Room Air Oxygen Flow Rate 0 Narrative Exam Narrative: General: Older female sitting in bed and in no acute distress, well-developed, well-nourished, appropriately interactive HEENT: Normocephalic, atraumatic. External ears without defect. Pupils equal, round, and reactive to light. Anicteric sclerae, moist conjunctivae, and no lid lag. Oropharynx free of erythema and cobble stoning with moist mucosa. Neck: Supple with full range of motion. No jugular venous distension. No bruits. No lymphadenopathy or thyromegaly. Cardiovascular: Regular rate and rhythm without murmurs, rubs, or gallops appreciated. Pulmonary: Clear to auscultation bilaterally without crackles, wheezes, or rhonchi. Normal respiratory effort with no use of accessory muscles. Abdomen: Soft, bowel sounds present, nontender, nondistended. No hepatosplenomegaly or masses appreciated. Extremities: No clubbing, cyanosis, or edema. Skin: Normal temperature, turgor, and texture; no rash, ulcers, or subcutaneous nodules appreciated. Neurological: Cranial nerves grossly intact. Psychiatric: Normal mood and affect. Alert and oriented to person, place, and time. Objective Labs Result Diagrams: 01/03/20 05:07 01/03/20 05:07 Labs: Laboratory Results - last 24 hr 01/02/20 01/02/20 01/02/20 16:00 16:00 23:30 WBC RBC Hgb Hct MCV MCH MCHC RDW Plt Count Neut % (Auto) Lymph % (Auto) [place] % (Auto) Eos % (Auto) Baso % (Auto) Neut # (Auto) Lymph # (Auto) [place] # (Auto) Eos # (Auto) Baso # (Auto) Sodium Potassium Chloride Carbon Dioxide BUN Creatinine Estimated GFR BUN/Creatinine Ratio Glucose Hemoglobin A1c 6.2 H Calcium Magnesium Total Creatine Kinase CK-MB (CK-2) CK-MB (CK-2) Rel Index Troponin I < 0.012 Triglycerides Cholesterol LDL Cholesterol, Calc HDL Cholesterol TSH 2.87 01/03/20 01/03/20 01/03/20 05:07 05:07 05:07 WBC 6.1 RBC 4.17 Hgb 12.4 Hct 37.2 MCV 89.3 MCH 29.6 MCHC 33.2 RDW 14.8 Plt Count 232 Neut % (Auto) 58.1 Lymph % (Auto) 27.5 [place] % (Auto) 9.8 Eos % (Auto) 3.2 Baso % (Auto) 1.4 Neut # (Auto) 3500 Lymph # (Auto) 1700 [place] # (Auto) 600 Eos # (Auto) 200 Baso # (Auto) 100 Sodium 138 Potassium 4.0 Chloride 106 Carbon Dioxide 27 BUN 15 Creatinine 0.95 Estimated GFR 58.5 L BUN/Creatinine Ratio 15.8 Glucose 103 Hemoglobin A1c Calcium 8.9 Magnesium 2.0 Total Creatine Kinase 44 CK-MB (CK-2) TNP CK-MB (CK-2) Rel Index TNP Troponin I < 0.012 Triglycerides 133 Cholesterol 207 H LDL Cholesterol, Calc 134 H HDL Cholesterol 46 TSH Discharge Plan Discharge Plan Patient Disposition: Home Discharge comment: You are being discharged home. Your chest pain is likely musculoskeletal. You have no evidence of heart attack or impending heart attack. Your EKG and heart monitoring were normal. Your heart enzymes were normal. Your echocardiogram did not show any changes of your heart to suggest heart attack. Your cholesterol is highly elevated and we have started you on aspirin 81 mg daily and atorvastatin 40 mg daily at bedtime. Your blood pressure was elevated and you have been started on lisinopril 20 mg daily. Recommend continued monitoring of your blood pressure with correct blood pressure measurement technique to assure that your blood pressure is well controlled. You are prediabetic and recommend lifestyle modification as discussed including: Low-fat, low-carbohydrate diet and exercise as you are doing. You were provided a prescription for nitroglycerin to use if needed for chest pain. If your chest pain recurs please seek medical attention immediately. Recommend outpatient stress test. Please follow-up with your primary care physician, Rosalba Saldivar, in the next 1 week regarding your hospitalization and referral for stress test. Discharge orders & Medications Prescriptions: New atorvastatin [Lipitor] 20 mg Tablet 40 mg PO BEDTIME Qty: 30 RF: 0 lisinopril 20 mg Tablet 20 mg PO DAILY Qty: 30 RF: 0 aspirin 81 mg Tablet,Delayed Release (Dr/Ec) 81 mg PO DAILY Qty: 30 RF: 0 nitroglycerin [Nitrostat] 0.4 mg Tablet, Sublingual 0.4 mg sublingual [id number] PRN (Reason: Chest Pain) 10 Days RF: 0 Continued levothyroxine 125 mcg tablet 125 mcg PO DAILY Qty: 90 RF: 0 Follow up/Referrals: Sarah Saldivar PA-C [Primary Care Provider] - 1 Week Diet/Activity/Treatments Diet: Carb-consistent/Diabetic, Low-fat, Low-sodium and Low-cholesterol Visit Report/Discharge Packet Instructions: The Mediterranean Diet and Good Health, DI for Chest Pain, Atorvastatin, Nitroglycerin Sublingual, Aspirin, Lisinopril Visit Report Forms: Patient Portal/API, Stroke Signs & Symptoms Discharge Data Primary Care Provider: Sarah Saldivar Attending Provider: Veronica Galarza Admit Date/Time: 01/02/20 18:37 Discharges patient from system. Discharge Date/Time: 01/03/20 18:57 Quality VTE Deep Vein Thrombosis/Pulmonary Embolism Present on Admission: No
--- NOTE | 2020-01-03 18:58 | PC.NURSE ---
Pt discharge instructions given. HL D/C'd intact. Pt escorted to vehicle by staff. D/C in stable condition.
== END 2020-01-03 18:57 | disposition home or self-care (01) ==
LOC: ED 18:37 → AC 18:38
PROVIDERS: Nurse Practitioner Family; Admitting Provider Internal Medicine; Emergency Provider Emergency Medicine; PCP Physician Assistant; Referring Provider Emergency Medicine; Visit Provider Internal Medicine
DX: R07.9 Chest pain, unspecified (principal); M54.6 Pain in thoracic spine; E11.9 Type 2 diabetes mellitus without complications; E03.9 Hypothyroidism, unspecified; Z11.59 Encounter for screening for other viral diseases
CPT/HCPCS: 36415; 36592; 71045; 71275; 74174; 80048; 80053; 80061; 82550; 82962; 83036; 83690; 83735; 84443; 84484; 85025; 85610; 85730; 87635; 93005; 93010; 96374; 99284; G0378; C8929; J1885; Q9957; Q9967

== ENCOUNTER → 2021-02-10 09:31 | Outpatient (CLI) | payer SELFPAY ==
--- NOTE | 2021-02-10 | DI.RAD.S_ITS ---
PROCEDURE: XR DEXA AXIAL SKELETON INDICATIONS: Asymptomatic menopausal state COMPARISON: None. FINDINGS: This blank DEXA report has been sent in error by the PACS system. The correct and complete report will be forthcoming in 1-2 days. Thank you for your patience and understanding. Dictated by: Jorge Alberto Moreira M.D. on 02/11/2021 at 10:09 Approved by: Luana Haas MD, PhD on 03/01/2021 at 10:04
--- NOTE | 2021-02-10 | DI.MG.S_ITS ---
BILATERAL DIGITAL SCREENING MAMMOGRAM 3D/2D WITH CAD: 02/10/2021 CLINICAL: Routine screening. Comparison is made to exams dated: 04/15/2019 mammogram, 11/08/2017 mammogram, 08/04/2016 mammogram, and 03/26/2015 mammogram - [facility]. There are scattered fibroglandular elements in both breasts. Current study was also evaluated with a Computer Aided Detection (CAD) system. No significant masses, calcifications, or other findings are seen in either breast. There has been no significant interval change. IMPRESSION: NEGATIVE There is no mammographic evidence of malignancy. A 1 year screening mammogram is recommended. This exam was interpreted at Station ID: [id number]. NOTE: For mammograms, a report in lay terms will be sent to the patient. Approximately 15% of breast malignancies will not be visualized mammographically. In the management of a palpable breast mass, a negative mammogram must not discourage biopsy of a clinically suspicious lesion. Electronically Signed By: Shreyas quinones/marlee:02/10/2021 13:21:01 letter sent: Normal Exam ACR BI-RADS Category 1: Negative 3341F
== END ==
PROVIDERS: PCP Nurse Practitioner Family; Referring Provider Physician Assistant; Visit Provider Nurse Practitioner Family
DX: Z12.31 Encounter for screening mammogram for malignant neoplasm of breast (principal); Z13.820 Encounter for screening for osteoporosis; Z78.0 Asymptomatic menopausal state; E07.9 Disorder of thyroid, unspecified
CPT/HCPCS: 77063; 77067; 77080

== ENCOUNTER → 2022-03-27 10:07 | Outpatient (CLI) | payer OTHER, SELFPAY ==
[2022-03-27 11:47] LABS: COVID19 -Nasal RAPID Negative (Negative)
== END ==
PROVIDERS: PCP Nurse Practitioner Family; Visit Provider Surgery
DX: Z01.812 Encounter for preprocedural laboratory examination (principal); Z20.822 Contact with and (suspected) exposure to COVID-19
CPT/HCPCS: 87635; C9803

== ENCOUNTER 2022-03-28 14:15 | Day surgery (SDC) | payer OTHER, SELFPAY ==
[2022-03-28] MEDS: LACTATED RINGERS 1,000 ML 200 ML IV (14:29)
[2022-03-28 14:47] VITALS: BP 166/86; PULSE 78; RESP 16; TEMP 36.6; O2SAT 100
--- NOTE | 2022-03-28 14:56 | PM.HP.1 ---
History of Present Illness History of Present Illness Date Patient Seen: 03/28/22 Time Patient Seen: 14:56 Chief complaint: DX COLONOSCOPY Narrative: The patient presents for colorectal screening. Five years ago colonoscopy demonstrated benign polyps.. No personal or family history of colon cancer. On further history denies any recent gastrointestinal symptoms. No nausea, vomiting, abdominal pain, loss of appetite, unexplained weight loss, change in bowel habits, diarrhea, constipation, melena, hematochezia, or bright red blood per rectum. Patient History Medical History (Updated 01/02/20 @ 18:37 by Hui Plok DO) Acquired hypothyroidism Chickenpox (Unknown) Dyslipidemia (~2014) Exertional dyspnea (~2014) History of petit-mal seizures (1954) Hypothyroidism (2006) Measles (Unknown) Mixed hyperlipidemia (02/08/15) Tubular adenoma of colon (07/12/16) Surgical History Status post delivery Status post delivery Status post delivery Family & Social History Family History Father Heart disease Smoker Alcoholism Mother Heart disease Smoker Grandfather No problems noted. Grandmother Stroke Grandfather No problems noted. Social History: household members family Tobacco & Substance use: Smoking Status Never smoker alcohol intake current alcohol intake frequency holiday/special occasion Substance Use Type does not use Meds Home Medications and Allergies Home Medications Medication Instructions Recorded Confirmed Type levothyroxine 125 mcg tablet 125 mcg PO DAILY #90 tabs 10/22/19 03/28/22 Rx aspirin 81 mg tablet,delayed 81 mg PO DAILY #30 tabs 01/03/20 03/28/22 Rx release Allergies Allergy/AdvReac Type Severity Reaction Status Date / Time metronidazole AdvReac Nausea, Verified 03/28/22 14:30 chills Exam Narrative Exam Narrative: General adult woman alert oriented no acute distress Extremities warm well perfused Assessment & Plan Assessment & Plan narrative: The patient requires colorectal screening and colonoscopy is recommended. Technical details were discussed. Risks, benefits, alternatives explained. Risks including but not limited to myocardial infarction, aspiration, bleeding, pain, missed lesion, incomplete examination, need for further radiographic studies, colonic perforation, and need for major abdominal surgery were discussed. All questions were answered to their satisfaction, and they are in agreement with this plan. Time Spent With Patient Critical Care time: I spent a total of [] minutes of critical care time on this patient's care today; this time is exclusive of procedural time.
--- NOTE | 2022-03-28 14:57 | P.OP.COLON_ITS ---
Operative Date/Time/Diagnoses Date of procedure: 03/28/22 Time of procedure: 14:57 Pre-op diagnosis: Personal history of colonic polyps Post-op diagnosis: same Procedure & Clinicians Study performed: Colonoscopy Same procedure as scheduled: Yes Indications: Personal history of colonic polyps. Surgeon: Moy Lemus Procedure Notes Procedure in detail: The history and physical was performed/updated and the patient is ASA class is 2. The procedure was discussed in detail with the patient. Potential risks complications including infection, bleeding, missed diagnosis, perforation, need for surgery, and were explained. Their questions were answered and informed consent was obtained. Patient was brought to the procedure room and placed standard monitoring equipment. The patient's vital signs were monitored continuously throughout the entire procedure. Prior to starting time-out was performed. The patient was placed in the left lateral recumbent position. Procedural sedation was administered by anesthesia. Examination began with a thorough inspection of the perianal area there was no evidence of fissures, fistulae, external hemorrhoids or cutaneous malignancy. The colonoscopy scope was then placed into the anal ca nal and was advanced to the cecum, which was identified by the ileocecal valve, the appendiceal orifice and the confluence of the taenia. The scope was then slowly withdrawn examining colon thoroughly in all directions, irrigating it of any residual stool. FINDINGS 1. No masses or polyps. 2. Left-sided diverticulosis. 3. Internal hemorrhoids The patient tolerated the procedure well. They will be discharged once criteria are met.The prep was of good/excellent quality. The withdrawl time was 7 minutes. Specimen(s): none sent Complications: none Impression: Normal colonoscopy Post-procedure Recommendations: Colonoscopy in 10 years and High fiber diet Disposition: same day surgery
[2022-03-28 15:22] VITALS: BP 144/79; PULSE 77; RESP 11; TEMP 36.4; O2SAT 95
[2022-03-28 15:27] VITALS: BP 140/78; PULSE 77; RESP 12; O2SAT 97
[2022-03-28 15:32] VITALS: BP 156/86; PULSE 75; RESP 12; O2SAT 97
[2022-03-28 15:37] VITALS: BP 159/80; PULSE 68; RESP 12; TEMP 36.4; O2SAT 97
[2022-03-28 15:41] VITALS: BP 170/90; PULSE 74; RESP 14; TEMP 36.4; O2SAT 96
== END 2022-03-28 16:01 | disposition home or self-care (01) ==
PROVIDERS: PCP Nurse Practitioner Family; Referring Provider Surgery; Visit Provider Surgery
PROC: 0DJD8ZZ Inspection of Lower Intestinal Tract, Via Natural or Artificial Opening Endoscopic (ICD-10-PCS; CPT 45378; principal; 2022-03-28 15:30)
DX: Z12.11 Encounter for screening for malignant neoplasm of colon (principal); Z86.010 Personal history of colon polyps; K64.8 Other hemorrhoids; K57.30 Diverticulosis of large intestine without perforation or abscess without bleeding
CPT/HCPCS: 45378; J2704; J3010

== ENCOUNTER → 2022-08-08 09:45 | Outpatient (CLI) | payer OTHER, SELFPAY ==
--- NOTE | 2022-08-08 | DI.MG.S_ITS ---
BILATERAL DIGITAL SCREENING MAMMOGRAM 3D/2D WITH CAD: 08/08/2022 CLINICAL: Routine screening. Comparison is made to exams dated: 02/10/2021 mammogram, 04/15/2019 mammogram, and 11/08/2017 mammogram - [facility]. There are scattered areas of fibroglandular density in both breasts (category b / 25%-50% glandular tissue). Current study was also evaluated with a Computer Aided Detection (CAD) system. No significant masses, calcifications, or other findings are seen in either breast. There has been no significant interval change. IMPRESSION: NEGATIVE There is no mammographic evidence of malignancy. A 1 year screening mammogram is recommended. Based on the Tyrer Cuzick model (a risk assessment model) the patient's lifetime risk is 5.6% and her 10 year risk is 3.8%. According to the ACR, ACS, and NCCN guidelines, an annual breast MRI exam along with mammogram is recommended if the patient's lifetime risk is 20% or greater. This exam was interpreted at Station ID: [id number]. NOTE: For mammograms, a report in lay terms will be sent to the patient. Approximately 15% of breast malignancies will not be visualized mammographically. In the management of a palpable breast mass, a negative mammogram must not discourage biopsy of a clinically suspicious lesion. Electronically Signed By: Yogi valdovinos/marlee:08/08/2022 13:08:43 letter sent: Normal Exam ACR BI-RADS Category 1: Negative 3341F
--- NOTE | 2022-08-08 | DI.US.S_ITS ---
PROCEDURE: US THYROID INDICATIONS: LEFT SUPRACLAVICULAR LUMP. Per patient, area of concern is at the superior left neck inferior to the mandible TECHNIQUE: Real-time scanning was performed of the thyroid gland, with image documentation. COMPARISON: [facility], US, THYROID, 09/21/2008, 15:57. FINDINGS: Right: Thyroid lobe measures 6.1 x 2.0 x 2.5 cm, and is heterogeneous in echotexture. Left: Thyroid lobe measures 6.0 x 1.9 x 2.0 cm, and is heterogeneous in echotexture. Isthmus: 4 mm thick. Increased gland vascularity on Doppler images. Nodule number: 1 Location: Left lobe superior Size: 0.7 x 0.5 x 0.6 cm. Composition: Solid Echogenicity: Isoechoic Shape: wider than tall. Margins: Smooth Echogenic foci: Peripheral calcification Total points: 5 ACR TI-RADS category: 4 Nodule number: 2 Location: Left lobe mid Size: 0.7 x 0.7 x 0.6 cm. Composition: Solid Echogenicity: Isoechoic Shape: wider than tall. Margins: Smooth Echogenic foci: Peripheral calcification Total points: 5 ACR TI-RADS category: 4 Nodule number: 3 Location: Left lobe inferior Size: 1.4 x 1.4 x 1.2 cm. Composition: Solid Echogenicity: Hyperechoic Shape: wider than tall. Margins: Smooth Echogenic foci: None Total points: 3 ACR TI-RADS category: 3 Nodule number: 4 Location: Right lobe inferior Size: 1.1 x 0.9 x 0.6 cm. Composition: Solid Echogenicity: Hypoechoic Shape: wider than tall. Margins: smooth Echogenic foci: None Total points: 4 ACR TI-RADS category: 4 Nodule number: 5 Location: Right lobe mid Size: 0.9 x 0.8 x 0.8 cm. Composition: Solid Echogenicity: Hypoechoic Shape: wider than tall. Margins: Smooth Echogenic foci: Peripheral calcification Total points: 6 ACR TI-RADS category: 4 No sonographic abnormality identified at the superior left neck at the area of concern indicated by the patient. IMPRESSION: 1. Multinodular thyroid gland. Thyroid nodules do not meet TI-RADS criteria for FNA recommendation. Follow-up is recommended as below. 2. Heterogeneous appearance of the thyroid gland with increased vascularity, findings that can be seen in the setting of a thyroiditis. 3. No sonographic abnormality identified at the superior left neck at the area of concern indicated by the patient. Clinical follow-up is recommended, repeat ultrasound or CT could be obtained as clinically indicated. ACR TI-RADS definitions and recommendations: TI-RADS 1 (benign): 0 points. FNA not needed. TI-RADS 2 (not suspicious): 2 points. FNA not needed. TI-RADS 3 (mildly suspicious): 3 points. * FNA if 2.5 cm or larger, follow up if 1.5 cm or larger (at 1, 3, and 5 years). TI-RADS 4 (moderately suspicious): 4-6 points. * FNA if 1.5 cm or larger, follow up if 1 cm or larger (at 1, 2, 3, and 5 years). TI-RADS 5 (highly suspicious): 7 points or more. * FNA if 1 cm or larger, follow up if 0.5 cm or larger (every year for 5 years). Dictated by: Nathen Hopson M.D. on 08/08/2022 at 17:08 Approved by: Nathen Hopson M.D. on 08/08/2022 at 17:20
--- NOTE | 2022-08-08 10:09 | DI.DEXA.S_ITS ---
Bone Density Report Name: JENAE KABA Age: 72 Sex: Female Ethnicity: White Date of : 1950 Indication: postmenopausal; screening for osteoporosis; Referring Provider: ZOILA FISHER Study: Bone densitometry was performed. Exam Date: August 08, 2022 Accession number: [id number] Bone Density: Region BMD T-score Z-score Classification AP Spine(L1-L4) 1.181 1.2 3.4 Normal Femoral Neck (Left) 0.839 -0.1 1.8 Normal Total Hip (Left) 1.050 0.9 2.5 Normal Femoral Neck (Right) 0.834 -0.1 1.7 Normal Total Hip (Right) 1.032 0.7 2.3 Normal Total Hip Mean 1.041 0.8 2.4 Normal World Health Organization criteria for BMD impression classify patients as: Normal (T-score at or above -1.0), Osteopenia (T-score between -1.0 and -2.5), or Osteoporosis (T-score at or below -2.5). 10-year Fracture Risk: FRAX not reported because: All T-scores for Spine Total, Hip Total, Femoral Neck at or above -1.0 Previous Exams: -- Region Exam Age BMD T-score BMD Change BMD Change Date g/cm2 vs Baseline vs Previous -- AP Spine (L1-L4) 08/08/2022 72 1.181 1.2 -0.080 (-6.4%)# -0.080 (-6.4%)# 02/10/2021 70 1.261 1.9 Total Hip(Left) 08/08/2022 72 1.050 0.9 -0.045 (-4.1%)# -0.045 (-4.1%)# 02/10/2021 70 1.095 1.3 Total Hip(Right) 08/08/2022 72 1.032 0.7 -0.009 (-0.9%)# -0.009 (-0.9%)# 02/10/2021 70 1.041 0.8 -- *Denotes significance at 95% confidence level, LSC for AP Spine = 0.022 g/cm2, LSC for Total Hip = 0.027 g/cm2 # Denotes dissimilar scan types or analysis methods Impression: The patient has normal bone mass. No significant bone loss was observed. Discussion: BONE DENSITY IS ABOVE THE MINIMUM DESIRABLE LEVEL AT ALL SKELETAL SITES TESTED. This patient?s bone mineral density is above the minimum desirable level (T-score -1.0 or better) at all sites measured. The patient should follow a healthful lifestyle (good nutrition with adequate calcium and vitamin D, and appropriate weight-bearing exercise). Follow-Up: Consider repeating this study in 5 years or sooner if there is some new clinical indication. Reported by: JESSE BARAJAS M.D. on 08/08/2022 10:19:00 AM.
== END ==
PROVIDERS: PCP Nurse Practitioner Family; Referring Provider Physician Assistant; Visit Provider Physician Assistant
DX: Z12.31 Encounter for screening mammogram for malignant neoplasm of breast (principal); R22.1 Localized swelling, mass and lump, neck; E04.2 Nontoxic multinodular goiter; Z13.820 Encounter for screening for osteoporosis; Z78.0 Asymptomatic menopausal state
CPT/HCPCS: 76536; 77063; 77067; 77080

== ENCOUNTER → 2023-10-19 15:05 | Outpatient (CLI) | payer OTHER, SELFPAY ==
--- NOTE | 2023-10-19 15:08 | DI.MRI.S_ITS ---
PROCEDURE: MR SHOULDER LT WO CON INDICATIONS: left shoulder pain refractory to PT exercises at home TECHNIQUE: Noncontrast oblique coronal T2 fast spin echo with fat saturation, oblique sagittal T1 spin echo and T2 fast spin echo with fat saturation, axial T1 spin echo and T2 fast spin echo with fat saturation through the shoulder. COMPARISON: [facility], CR, XR SHOULDER 2+ VIEWS LEFT, 05/21/2023, 8:12. FINDINGS: Image quality: Excellent. Rotator cuff: Moderate tendinosis of the supraspinatus. There is near full-thickness, articular sided tear at the anterior fiber of the supraspinatus (series 6, image 10). There is a small delaminating cyst tracking along the superior aspect of the supraspinatus, measuring 5 mm in diameter. There is focal, high-grade tear of the critical zone of the junction of the supraspinatus and infraspinatus (series 8, image 16). Small amount of fluid tracking along the infraspinatus tendon. The teres minor is unremarkable. Mild tendinosis of the subscapularis, without tear. No muscle edema or fatty atrophy. Bones and bursae: Moderate degenerative changes acromioclavicular joint. Type 1 acromion. No os acromiale. Mild subacromial/subdeltoid bursitis. Mild subchondral cystic changes in the humeral head, reactive. No acute fracture. No focal chondral defects of the glenohumeral joint. Capsule and soft tissues: Anterior superior labral tear. Posterior superior labral tear as well. Mild tenosynovitis of the extra-articular biceps tendon. The intra-articular biceps tendon is unremarkable. Small glenohumeral effusion. Mild subcoracoid bursitis. Edema about the rotator cuff interval, raising concern for his of capsulitis. IMPRESSION: 1. Near full thickness tear of the anterior fiber of the supraspinatus. Additional high-grade tear at the junction of the supraspinatus and infraspinatus. 2. Moderate degenerative changes of the acromioclavicular joint. 3. Findings suggestive of adhesive capsulitis. Dictated by: Gemma Enriquez M.D. on 10/19/2023 at 20:43 Approved by: Gemma Enriquez M.D. on 10/19/2023 at 20:55
--- NOTE | 2023-10-19 15:08 | DI.US.S_ITS ---
PROCEDURE: US THYROID INDICATIONS: evaluate thyroid nodules TECHNIQUE: Real-time scanning was performed of the thyroid gland, with image documentation. COMPARISON: Ultrasound thyroid gland dated 08/08/2022 FINDINGS: Thyroid: Right lobe measures 3.9 x 1.5 x 1.7 cm. Left lobe measures 4.4 x 2.0 x 1.8 cm. Isthmus is 0.3 cm thick. Echotexture is heterogeneous. Nodule number: 1 Location: Upper pole left thyroid lobe Size: 0.7 x 0.9 x 0.7 cm, previously 0.7 x 0.5 x 0.6 cm. Composition: Solid Echogenicity: Isoechoic Shape: Wider than tall Margins: Smooth Echogenic foci: Peripheral calcifications Total points: 5 ACR TI-RADS category: Moderately suspicious. Nodule number: 2 Location: Mid pole left thyroid lobe Size: 0.8 x 0.7 x 0.6 cm, previously 0.7 x 0.7 x 0.6 cm. Composition: Solid Echogenicity: Isoechoic Shape: Wider than tall Margins: Smooth Echogenic foci: Peripheral calcifications. Total points: 5 ACR TI-RADS category: Moderately suspicious Nodule number: 3 Location: Lower pole left thyroid lobe. Size: 1.8 x 1.6 x 1.4 cm, previously 1.4 x 1.4 x 1.2 cm Composition: Solid Echogenicity: Hyperechoic Shape: Wider than Margins: Smooth Echogenic foci: Non Total points: 3 ACR TI-RADS category: Mildly suspicious. Nodule number: 4 Location: Lower pole right thyroid lobe Size: 1.2 x 0.9 x 0.7 cm, previously 1.1 x 0.9 x 0.6 cm Composition: Solid Echogenicity: Hypoechoic Shape: Wider than tall Margins: Smooth Echogenic foci: Non Total points: 4 ACR TI-RADS category: Moderately suspicious Nodule number: 5 Location: Mid pole right thyroid lobe Size: 1.0 x 1.0 x 0.9 cm, previously 0.9 x 0.8 x 0.8 cm Composition: Solid Echogenicity: Hypoechoic Shape: Wider than tall Margins: Smooth Echogenic foci: Peripheral calcifications Total points: 6 ACR TI-RADS category: Moderately suspicious IMPRESSION: Heterogeneous thyroid parenchymal echotexture with previously described bilateral thyroid nodules again identified, unchanged or minimally increased in size compared to previous study. Continued ultrasound follow-up is recommended. ACR TI-RADS definitions and recommendations: TI-RADS 1 (benign): 0 points. FNA not needed. TI-RADS 2 (not suspicious): 2 points. FNA not needed. TI-RADS 3 (mildly suspicious): 3 points. * FNA if 2.5 cm or larger, follow up if 1.5 cm or larger (at 1, 3, and 5 years). TI-RADS 4 (moderately suspicious): 4-6 points. * FNA if 1.5 cm or larger, follow up if 1 cm or larger (at 1, 2, 3, and 5 years). TI-RADS 5 (highly suspicious): 7 points or more. * FNA if 1 cm or larger, follow up if 0.5 cm or larger (every year for 5 years). Dictated by: Tashi Bah M.D. on 10/19/2023 at 17:36 Approved by: Tashi Bah M.D. on 10/19/2023 at 17:42
== END ==
PROVIDERS: PCP Nurse Practitioner; Referring Provider Nurse Practitioner; Visit Provider Nurse Practitioner
DX: E04.2 Nontoxic multinodular goiter (principal); M75.112 Incomplete rotator cuff tear or rupture of left shoulder, not specified as traumatic; M25.512 Pain in left shoulder; R93.89 Abnormal findings on diagnostic imaging of other specified body structures
CPT/HCPCS: 73221; 76536

== ENCOUNTER → 2023-11-19 16:00 | Outpatient (CLI) | payer OTHER, SELFPAY ==
--- NOTE | 2023-11-19 16:01 | DI.MG.S_ITS ---
BILATERAL DIGITAL SCREENING MAMMOGRAM 3D/2D WITH CAD: 11/19/2023 CLINICAL: Routine screening. Comparison is made to exams dated: 08/08/2022 mammogram, 02/10/2021 mammogram, and 04/15/2019 mammogram - [facility]. There are scattered areas of fibroglandular density in both breasts (category b / 25%-50% glandular tissue). Current study was also evaluated with a Computer Aided Detection (CAD) system. No significant masses, calcifications, or other findings are seen in either breast. There has been no significant interval change. IMPRESSION: NEGATIVE There is no mammographic evidence of malignancy. A 1 year screening mammogram is recommended. Based on the Tyrer Cuzick model (a risk assessment model) the patient's lifetime risk is 5.3% and her 10 year risk is 3.9%. According to the ACR, ACS, and NCCN guidelines, an annual breast MRI exam along with mammogram is recommended if the patient's lifetime risk is 20% or greater. This exam was interpreted at Station ID: [id number]. NOTE: For mammograms, a report in lay terms will be sent to the patient. Approximately 15% of breast malignancies will not be visualized mammographically. In the management of a palpable breast mass, a negative mammogram must not discourage biopsy of a clinically suspicious lesion. Electronically Signed By: Deya Bloom M.D., Ph.D. skyla/marlee:11/20/2023 11:49:01 letter sent: Normal Exam ACR BI-RADS Category 1: Negative 3341F
== END ==
PROVIDERS: PCP Nurse Practitioner; Referring Provider Nurse Practitioner; Visit Provider Nurse Practitioner
DX: Z12.31 Encounter for screening mammogram for malignant neoplasm of breast (principal); R92.323 Mammographic fibroglandular density, bilateral breasts
CPT/HCPCS: 77063; 77067

== ENCOUNTER → 2024-01-30 15:54 | Outpatient (CLI) | payer OTHER, SELFPAY ==
[2023-12-11 16:06] VITALS: BMI 39.4
--- NOTE | 2024-01-30 15:55 | DI.RAD.S_ITS ---
PROCEDURE: XR KNEE LT 3V INDICATIONS: Knee pain and swelling; suspect OA TECHNIQUE: 3 views of the knee were acquired. COMPARISON: None. FINDINGS: Bones: No fractures or dislocations. Tricompartmental osteoarthritic changes with osteophytosis and mild to moderate medial compartment joint space narrowing. No suspicious bony lesions. Soft tissues: Small joint effusion. No suspicious soft tissue calcifications. IMPRESSION: No acute osseous abnormalities. Mild to moderate osteoarthritic changes of the knee, most pronounced within the medial compartment. Dictated by: Raymond Madrigal M.D. on 01/30/2024 at 18:01 Approved by: Raymond Madrigal M.D. on 01/30/2024 at 18:02
== END ==
PROVIDERS: Referring Provider Physician Assistant; Visit Provider Physician Assistant
DX: M25.562 Pain in left knee (principal)
CPT/HCPCS: 73562

== ENCOUNTER → 2024-02-19 09:23 | Outpatient (CLI) | payer OTHER, SELFPAY ==
[2023-12-11 16:06] VITALS: BMI 39.4
--- NOTE | 2024-02-19 09:23 | DI.US.S_ITS ---
PROCEDURE: US PERIPH VENOUS LOW EXTREM LT INDICATIONS: Pain and swelling left lower leg posterior knee and calf TECHNIQUE: Real-time imaging, as well as color and pulse Doppler interrogation, were performed of the lower extremity deep veins from the inguinal ligament to the popliteal fossa, with documentation of the visualized calf veins. COMPARISON: None. FINDINGS: The common femoral, femoral, popliteal, and the visualized calf veins are normally compressible, and free of intraluminal thrombus. Color and pulse Doppler demonstrate normal phasic intraluminal flow. There is normal augmentation response to distal compression maneuver. IMPRESSION: No findings of lower extremity deep venous thrombosis. Dictated by: Luana Haas MD, PhD on 02/19/2024 at 10:12 Approved by: Luana Haas MD, PhD on 02/19/2024 at 10:12
== END ==
PROVIDERS: PCP Family Medicine; Referring Provider Physician Assistant; Visit Provider Physician Assistant
DX: M79.605 Pain in left leg (principal); M79.89 Other specified soft tissue disorders
CPT/HCPCS: 93971

== ENCOUNTER → 2024-05-12 07:05 | Outpatient (CLI) | payer OTHER, SELFPAY ==
[2023-12-11 16:06] VITALS: BMI 39.4
--- NOTE | 2024-05-12 07:48 | DI.MRI.S_ITS ---
PROCEDURE: MR KNEE LT WO CON INDICATIONS: EFFUSION LEFT KNEE,BAKERS CYST TECHNIQUE: Noncontrast sagittal PD fast spin echo and T2 fast spin echo with fat saturation, sagittal 3-D FLASH with fat saturation; coronal T1 spin echo and PD fast spin echo with fat saturation, and axial PD fast spin echo with fat saturation through the knee. COMPARISON: [facility] [place], CR, XR KNEE 4+ VIEWS LEFT, 04/18/2024, 15:53. FINDINGS: Image quality: Excellent. Bones: Mild marrow edema is present at the medial tibial plateau (14/21). The bone marrow signal is otherwise normal. There is no acute fracture or dislocation. Joints: There is a moderate knee joint effusion with synovial proliferation. There is mild knee osteoarthritis, predominantly in the medial compartment. Ramachandran's cyst: None. Menisci: There is a complex tear of the body and posterior horn of the medial meniscus, extending to the posterior root attachment (14/20-25), along with 4 mm of meniscal body extrusion into the medial gutter (14/20). The lateral meniscus and its posterior root attachment are normal. Cruciate ligaments: The anterior cruciate ligament is normal. The posterior cruciate ligament is normal. Collateral ligaments: The medial collateral ligament complex is normal. The lateral collateral ligament complex is normal. Popliteus Muscle/Tendon: The popliteus muscle and tendon are normal. Extensor mechanism: The quadriceps tendon is normal. The patellar tendon is normal. The medial and lateral patellar retinacular attachments are normal. Articular cartilage: Multifocal areas of partial thickness chondral loss are present at the medial weight-bearing compartment (14/21), as well as the nonweightbearing medial femoral condyle (11/7). Other: Mild prepatellar and infrapatellar subcutaneous edema. IMPRESSION: 1. Complex tear of the medial meniscus with posterior root involvement and 4 mm of meniscal body extrusion. 2. Mild knee osteoarthritis with moderate joint effusion (likely secondary to meniscal tear), synovitis, and associated articular cartilage defects. Dictated by: Edgar Durham M.D. on 05/12/2024 at 14:59 Approved by: Edgar Durham M.D. on 05/12/2024 at 15:06
== END ==
LOC: MRI 07:06
PROVIDERS: PCP Family Medicine; Referring Provider Orthopaedic Surgery; Visit Provider Orthopaedic Surgery
DX: S83.232A Complex tear of medial meniscus, current injury, left knee, initial encounter (principal); M25.462 Effusion, left knee; M17.12 Unilateral primary osteoarthritis, left knee; M65.98 Unspecified synovitis and tenosynovitis, other site
CPT/HCPCS: 73721

== ENCOUNTER → 2024-12-19 16:24 | Outpatient (CLI) | payer OTHER, SELFPAY ==
[2023-12-11 16:06] VITALS: BMI 39.4
--- NOTE | 2024-12-19 16:25 | DI.US.S_ITS ---
PROCEDURE: US THYROID INDICATIONS: Yearly follow up on thyroid nodules TECHNIQUE: Real-time scanning was performed of the thyroid gland, with image documentation. COMPARISON: [facility] [place] [facility], [place], US THYROID, 10/19/2023, 16:19. FINDINGS: Thyroid: Right lobe measures 5.2 x 1.6 x 1.9 cm. Left lobe measures 4.4 x 1.8 x 1.7 cm. Isthmus is 0.4 cm thick. Echotexture is heterogeneous. Left submandibular lymph node is seen measures 7 mm in size. Nodule number: 1 Location: Midpole left thyroid lobe Size: 1.3 x 0.9 x 0.9 cm. New since previous study. Composition: Solid Echogenicity: Isoechoic Shape: Wider than tall Margins: Smooth Echogenic foci: None Total points: 3 ACR TI-RADS category: 3 Nodule number: 2 Location: Mid to lower pole left thyroid lobe Size: 1.9 x 1.6 x 1.2 cm, previously 1.8 x 1.6 x 1.4 cm in size. Composition: Solid Echogenicity: Isoechoic Shape: Wider than tall. Margins: Smooth Echogenic foci: None Total points: 3 ACR TI-RADS category: 3 IMPRESSION: 2 category 3 left-sided thyroid nodule as described above. Continued ultrasound follow-up is recommended. ACR TI-RADS definitions and recommendations: TI-RADS 1 (benign): 0 points. FNA not needed. TI-RADS 2 (not suspicious): 2 points. FNA not needed. TI-RADS 3: 3 points. * FNA if 2.5 cm or larger, follow up if 1.5 cm or larger (at 1, 3, and 5 years). TI-RADS 4: 4-6 points. * FNA if 1.5 cm or larger, follow up if 1 cm or larger (at 1, 2, 3, and 5 years). TI-RADS 5: 7 points or more. * FNA if 1 cm or larger, follow up if 0.5 cm or larger (every year for 5 years). Dictated by: Tashi Bah M.D. on 12/19/2024 at 20:34 Approved by: Tashi Bah M.D. on 12/19/2024 at 20:36
== END ==
LOC: US 16:25
PROVIDERS: PCP Family Medicine; Referring Provider Physician Assistant; Visit Provider Physician Assistant
DX: E04.2 Nontoxic multinodular goiter (principal); R93.89 Abnormal findings on diagnostic imaging of other specified body structures
CPT/HCPCS: 76536

== ENCOUNTER → 2025-02-26 16:41 | Outpatient (CLI) | payer OTHER, SELFPAY ==
[2023-12-11 16:06] VITALS: BMI 39.4
[2025-02-26 18:00] LABS: TSH w/ Reflex to FT4 2.80 uIU/mL (0.47-4.68)
== END ==
PROVIDERS: PCP Family Medicine; Referring Provider Physician Assistant; Visit Provider Physician Assistant
DX: E06.3 Autoimmune thyroiditis (principal); E04.2 Nontoxic multinodular goiter
CPT/HCPCS: 36415; 84443

== ENCOUNTER → 2025-04-06 17:41 | Outpatient (CLI) | payer OTHER, SELFPAY ==
[2023-12-11 16:06] VITALS: BMI 39.4
--- NOTE | 2025-04-06 17:42 | DI.MG.S_ITS ---
MM screening mammo BI: 04/06/2025. BI-RADS: 1 CLINICAL: 75-year old female for bilateral screening mammogram. Tyrer-Cuzick lifetime risk of 3.4%. No personal or first-degree family history of breast cancer. PRIOR EXAMS 11/19/2023, 08/08/2022, 02/10/2021, 04/15/2019. MAMMOGRAPHY TECHNIQUE: 2D and 3D (tomosynthesis) digital mammographic views obtained, with additional images as needed for full coverage. Current study was also evaluated with a Computer Aided Detection (CAD) system. DENSITY B. There are scattered areas of fibroglandular density. MAMMOGRAPHY FINDINGS Bilateral: No suspicious mass, asymmetry, microcalcification, or other abnormality seen. No significant change from comparison. IMPRESSION: * No evidence of malignancy. RECOMMENDATIONS Bilateral * Annual screening mammography. OVERALL ASSESSMENT CATEGORY BI-RADS-1: Negative. [employer] recommends annual screening mammography beginning at age 40 for women with average risk of breast cancer. ELECTRONICALLY SIGNED: Nathen Carmichael M.D. on 04/07/2025 at 10:42:13 AM PT Interpreting Station ID: [id number]
== END ==
LOC: MAMMO 17:41
PROVIDERS: PCP Family Medicine; Referring Provider Family Medicine; Visit Provider Family Medicine
DX: Z12.31 Encounter for screening mammogram for malignant neoplasm of breast (principal)
CPT/HCPCS: 77063; 77067